=== PATIENT | female | born 1945 | race Caucasian/White ===

== ENCOUNTER 2016-12-23 21:34 | Emergency (ER) | payer MEDICARE, MEDICAID ==
[~2016-12-23] VITALS: Ht 167.6 cm; Wt 72.6 kg
[~2016-12-23 21:34] MED LIST: UNKNOWN BP MEDS; UNKNOWN MEDS
[2016-12-23] MEDS ORDERED: IV NS 0.9% 1,000 ML BAG IV ONE (22:30)
[2016-12-23] MEDS ORDERED: OXYMETAZOLINE HCL NASAL SPRAY 30 ML BOTTLE NS ONE ×2 (22:30)
[2016-12-23] MEDS ORDERED: SILVER NITRATE APPLICATOR 1 EA BOX ONE ×2 (22:30)
[2016-12-23] MEDS ORDERED: PHENYLEPHRINE 0.5% NASAL SPRAY 15 ML BOTTLE NS ONE (22:33)
[2016-12-23] MEDS ORDERED: ONDANSETRON 4 MG TAB.RAPDIS ONE (23:54)
[2016-12-23] MEDS ORDERED: HYDROMORPHONE 1 MG/1 ML DISP.SYRIN ONE (23:55)
[2016-12-24] MEDS ORDERED: HYDROMORPHONE 1 MG/1 ML DISP.SYRIN IV ONE
[2016-12-24] MEDS ORDERED: ONDANSETRON 4 MG TAB.RAPDIS SL ONE
[2016-12-24 05:57] VITALS: BP 140/77
== END 2016-12-24 05:58 | disposition home or self-care (01) ==
LOC: ER 21:38 → ICU 12-24 01:21 → UNDOADMIN 12-24 01:21 → ER 12-24 05:58
DX: R04.0 Epistaxis (principal); I10 Essential (primary) hypertension; R73.03 Prediabetes; Z88.0 Allergy status to penicillin; Z88.1 Allergy status to other antibiotic agents; Z88.6 Allergy status to analgesic agent; Z88.8 Allergy status to other drugs, medicaments and biological substances
CPT/HCPCS: 30901; 96372; 99284; A4606 ×2; J1170; Q0162; Z7610